=== PATIENT | male | born 1980 | race Caucasian/White ===

== ENCOUNTER 2017-07-16 09:37 | Emergency (ER) | payer SELFPAY ==
[2017-07-16] MEDS ORDERED: PEPCID IV ONE ×2 (10:20→12:58)
[2017-07-16] MEDS ORDERED: BENADRYL IV ONE (10:20)
[2017-07-16] MEDS ORDERED: NACL 0.9% 1000 ML 1,000 ML IV ONE (10:20)
--- NOTE | 2017-07-16 10:24 | Emergency Department Report ---
Entered by STONE CONNOLLY, acting as scribe for RITA HAWKINS NP. Chief Complaint: Skin Rash Stated Complaint: POSS INSECT BITES Time Seen by Provider: 07/16/17 10:19 - HPI History of Present Illness: 37 y/o male presents with rash to neck and back that started this morning. Pt denies taking any medication after onset. Sx include itching. Pt endorses tobacco use and occasional ETOH use. - ROS Review of Systems: +urticaria to neck and back - Exam Vital Signs: Vital Signs 07/16/17 10:18 Temperature 98.5 F Pulse Rate 87 Respiratory 16 Rate Blood Pressure 125/81 O2 Sat by Pulse 97 Oximetry Physical Exam: Hives noted to neck and back steady gait MSE screening note: Focused history and physical exam performed. Due to findings the following was ordered: meds ED Disposition for MSE Condition: Stable This documentation as recorded by the scribeCATHLENE RYAN,accurately reflects the service I personally performed and the decisions made by ROSS hwang TRACY M , HEALTH POLICY MANAGER.
[2017-07-16] MEDS ORDERED: BENADRYL ONE (12:57)
--- NOTE | 2017-07-16 13:52 | Emergency Department Report ---
ED Allergic Reaction HPI - General Chief complaint: Allergic Reaction Stated complaint: POSS INSECT BITES Time Seen by Provider: 07/16/17 10:19 Source: patient Mode of arrival: Ambulatory Limitations: No Limitations - History of Present Illness Initial Comments: This is a 37-year-old male nontoxic, well nourished in appearance, no acute signs of distress complaining of rash that her neck and back that started this morning. Patient around 6 AM he ate a breakfast that his mother made that does not know what was inside and found symptoms of itching and rash develop. Patient denies any breathing, facial swelling, tongue swelling, nausea, vomiting , shortness of breath, chest pain, fevers chills. Denies past medical history or any allergies. MD Complaint: allergic reaction -: Gradual, This morning Exposure: food Symptoms: rash, itching. denies: facial swelling, lip swelling, difficulty swallowing, difficulty breathing, orolingual swelling, hoarseness, syncopy, dizziness, nausea, vomiting, abdominal pain Severity: mild Treatment Prior to Arrival: none Previous Allergy History: none - Related Data Previous Rx's Medication Instructions Recorded Last Taken Type diphenhydrAMINE [Benadryl CAP] 25 mg PO Q6HR PRN #20 capsule 07/16/17 Unknown Rx predniSONE [Deltasone] 20 mg PO BID #10 tab 07/16/17 Unknown Rx Allergies Allergy/AdvReac Type Severity Reaction Status Date / Time No Known Allergies Allergy Verified 07/16/17 10:21 ED Review of Systems ROS: Stated complaint: POSS INSECT BITES Other details as noted in HPI Constitutional: denies: chills, fever Eyes: denies: eye pain, eye discharge, vision change ENT: denies: ear pain, throat pain Respiratory: denies: cough, shortness of breath, wheezing Cardiovascular: denies: chest pain, palpitations Endocrine: no symptoms reported Gastrointestinal: denies: abdominal pain, nausea, diarrhea Genitourinary: denies: urgency, dysuria Musculoskeletal: denies: back pain, joint swelling, arthralgia Skin: denies: rash, lesions Neurological: denies: headache, weakness, paresthesias Psychiatric: denies: anxiety, depression Hematological/Lymphatic: denies: easy bleeding, easy bruising ED Past Medical Hx - Past Medical History Previous Medical History?: No - Surgical History Past Surgical History?: No - Social History Smoking Status: Current Every Day Smoker Substance Use Type: Alcohol - Medications Home Medications: Home Medications Medication Instructions Recorded Confirmed Last Taken Type diphenhydrAMINE [Benadryl CAP] 25 mg PO Q6HR PRN #20 capsule 07/16/17 Unknown Rx predniSONE [Deltasone] 20 mg PO BID #10 tab 07/16/17 Unknown Rx ED Physical Exam - General Limitations: No Limitations General appearance: alert, in no apparent distress - Head Head exam: Present: atraumatic, normocephalic, normal inspection - Eye Eye exam: Present: normal appearance, PERRL, EOMI. Absent: scleral icterus, conjunctival injection, nystagmus, periorbital swelling, periorbital tenderness Pupils: Present: normal accommodation - ENT ENT exam: Present: normal exam, normal orophraynx, mucous membranes moist, TM's normal bilaterally, normal external ear exam - Expanded ENT Exam Expanded Ear exam: Present: normal external inspection Mouth exam: Present: normal external inspection, tongue normal. Absent: drooling, trismus, muffled voice, tongue elevation, laceration Teeth exam: Present: normal inspection Throat exam: Positive: normal inspection, other (uvula midline. No abscess or swelling noted. No angioedema noted. Normal tongue.). Negative: tonsillar erythema, tonsillomegaly, tonsillar exudate, R peritonsillar mass, L peritonsillar mass - Neck Neck exam: Present: normal inspection, full ROM. Absent: tenderness, meningismus, lymphadenopathy, thyromegaly - Respiratory Respiratory exam: Present: normal lung sounds bilaterally. Absent: respiratory distress, wheezes, rales, rhonchi, stridor, chest wall tenderness, accessory muscle use, decreased breath sounds, prolonged expiratory - Cardiovascular Cardiovascular Exam: Present: regular rate, normal rhythm. Absent: systolic murmur, diastolic murmur, rubs, gallop - GI/Abdominal GI/Abdominal exam: Present: soft, normal bowel sounds. Absent: distended, tenderness, guarding, rebound, rigid, diminished bowel sounds - Rectal Rectal exam: Present: deferred - Extremities Exam Extremities exam: Present: normal inspection, full ROM, normal capillary refill. Absent: tenderness, pedal edema, joint swelling, calf tenderness - Back Exam Back exam: Present: normal inspection, full ROM. Absent: tenderness, CVA tenderness (L), muscle spasm, paraspinal tenderness, rash noted - Neurological Exam Neurological exam: Present: alert, oriented X3, CN II-XII intact, normal gait, reflexes normal - Psychiatric Psychiatric exam: Present: normal affect, normal mood - Skin Skin exam: Present: warm, dry, intact, normal color, rash, urticaria. Absent: cyanosis, diaphoretic, erythema, vesicles, petechiae, pallor, abrasion, ecchymosis ED Course Vital Signs 07/16/17 10:18 Temperature 98.5 F Pulse Rate 87 Respiratory 16 Rate Blood Pressure 125/81 O2 Sat by Pulse 97 Oximetry - Reevaluation(s) Reevaluation #1: 07/16/17 13:54 Patient is speaking in full sentences with no signs of distress noted. ED Medical Decision Making - Medical Decision Making This is a 30-year-old male with allergic reaction status post eating unknown food. There is no signs of any angioedema or swelling. No drooling. Patient' s painful symptoms with stress. Patient stable. Patient received Pepcid, Benadryl, Solu-Medrol IV in the ED. Patient stated that she has subsided. Patient was discharged with prednisone for 5 days. Patient was instructed to follow-up with her primary care doctor in 3-5 days or symptoms such as shortness of breath, difficulty breathing, facial swelling, or worsening symptoms return to emergency room as soon as possible. At time time of discharge , the patient does not seem toxic or ill in appearance. No acute signs of distress noted. Patient agrees to discharge treatment plan of care. No further questions noted by the patient. Critical care attestation.: If time is entered above; I have spent that time in minutes in the direct care of this critically ill patient, excluding procedure time. ED Disposition Clinical Impression: Allergic reaction Qualifiers: Encounter type: initial encounter Qualified Code(s): T78.40XA - Allergy, unspecified, initial encounter Disposition: TO HOME OR SELFCARE Is pt being admited?: No Does the pt Need Aspirin: No Condition: Stable Instructions: Urticaria (ED), Allergies (ED), Prednisone (By mouth), Diphenhydramine (By mouth) Additional Instructions: follow-up with your primary care doctor in 3-5 days or symptoms such as shortness of breath, difficulty breathing, facial swelling, or worsening symptoms return to emergency room as soon as possible. Do not operate any machinery after discharged due to the sedation/drowsiness of Benadryl but use to the emergency room. Take prednisone and Benadryl as prescribed. Do not operate any machinery while taking Benadryl due to sedation/drowsiness. Prescriptions: diphenhydrAMINE [Benadryl CAP] 25 mg PO Q6HR PRN #20 capsule PRN Reason: Itching predniSONE [Deltasone] 20 mg PO BID #10 tab Referrals: PRIMARY CAREMD [Primary Care Provider] - 3-5 Days TABITHA SHERIFF MD [Staff Physician] - 3-5 Days [facility] [Outside] - 3-5 Days [facility] [Outside] - 3-5 Days Forms: Work/School Release Form(ED)
[2017-07-16 16:21] VITALS: BP 122/82
== END 2017-07-16 16:21 | disposition home or self-care (01) ==
LOC: ED 09:37
DX: T78.40XA Allergy, unspecified, initial encounter (principal); F17.200 Nicotine dependence, unspecified, uncomplicated
CPT/HCPCS: 96361; 96374; 96375; 99282; J1200; J2930; J7030